=== PATIENT | female | born 1960 | race Caucasian/White ===

== ENCOUNTER 2017-03-04 15:07 | Outpatient (CLI) | payer BC ==
--- NOTE | 2017-03-04 15:45 | GI Initial Consult Note ---
History of Present Illness General Date patient seen: Mar 04, 2017 Time patient seen: 15:36 Referring physician: MIA Reason for Consultation: ABDOMINAL PAIN / DYSPHAGIA Present Illness HPI 56 year old female patient referred by Dr. Machado for evaluation of abdominal pain and dysphagia. The patient presents with complaints of stomach problems; indigestion after food especially with spicy or sour food. In addition, she complains of food getting "stuck" in her esophagus. Addition symptoms include heartburn, discomfor in the pit of the stomach, bloating and belching, and occasional nausea. Noted patient has RUQ + Epigastric pain. Her last colonoscopy was approximately 8 years ago done at [facility] with normal results. Denies any N/V/D. Denies changes in bowel habits. The patient does not take any routine medications. Med list reviewed/reconciled: Yes Allergies: Coded Allergies: Penicillins (Unverified Allergy, Severe, 03/04/17) Septra (Unverified Allergy, Severe, 03/04/17) Patient History History Provided By: Patient PMH Narrative GERD Complex Migraines Cyst in the Liver based on imaging studies Anxiety PSHx colonoscopy @ age 48 Family History Narrative Denies Social History: Denies: alcohol use, drug use, other, smoking Review of Systems All Other Systems: negative except mentioned in HPI Physical Exam T 97.5 BP 148/84 P 105 96 RA WT 151.3 Sp02 EP Interpretation: reviewed General Appearance: well appearing, no apparent distress, alert Head: normocephalic EENT: normal ENT inspection Neck: supple Respiratory: normal breath sounds, no respiratory distress Cardiovascular: normal rate, tachycardia Gastrointestinal: normal inspection, non tender, soft Genitourinary: no CVA tenderness Musculoskeletal: normal inspection, back normal Neurologic: normal inspection, alert, oriented x3, responsive Psychiatric: normal inspection, judgement/insight normal, memory normal Skin: normal inspection, normal color, no rash, warm/dry Lymphatic: normal inspection, no adenopathy GI: Plan Problems: (1) GERD (gastroesophageal reflux disease) (2) Liver cyst (3) Anxiety (4) Dysphagia (5) Migraine Plan Pt will require EGD to evaluate Dysphagia and GERD, pending authorization. Pt will also need a follow abdominal U/S to evaluate liver cyst. will contact patient to schedule endoscopic procedure. recommend trial of OTC antacids Seen with Dr. Stephens. Thank you for referring this kind patient. Jenifer Hawk N.P. Mar 04, 2017 15:45
== END 2017-03-04 15:24 | disposition home or self-care (01) ==
LOC: PAN 15:07
DX: K21.9 Gastro-esophageal reflux disease without esophagitis (principal); K76.89 Other specified diseases of liver; F41.9 Anxiety disorder, unspecified; R13.10 Dysphagia, unspecified; G43.909 Migraine, unspecified, not intractable, without status migrainosus; Z88.0 Allergy status to penicillin; Z88.8 Allergy status to other drugs, medicaments and biological substances
CPT/HCPCS: 99201